=== PATIENT | female | born 1935 | race Caucasian/White ===

== ENCOUNTER 2019-01-27 16:35 | Inpatient (IN) ==
--- NOTE | 2019-01-27 17:16 | PROVIDER DOCUMENTATION ---
HPI-General Adult - General Chief Complaint: Weakness Stated Complaint: WEAKNESS Time Seen by Provider: 01/27/19 17:08 Source: patient Allergies/Adverse Reactions: Patient Allergies Allergy/AdvReac Type Severity Reaction Status Date / Time No Known Allergies Allergy Verified 01/27/19 17:21 Home Medications: Home Medication List Medication Instructions Recorded Confirmed Last Taken Type ATORVAstatin [Lipitor] 40 mg PO QHS 12/07/13 01/27/19 1 Day Ago History ~08/09/17 Carvedilol 25 mg PO BID 12/07/13 01/27/19 1 Day Ago History ~08/09/17 Ezetimibe [Zetia] 10 mg PO QHS 12/07/13 01/27/19 1 Day Ago History ~08/09/17 Indapamide 2.5 mg PO DAILY 12/07/13 01/27/19 1 Day Ago History ~08/09/17 Raloxifene [Evista] 60 mg PO DAILY 12/07/13 01/27/19 1 Day Ago History ~08/09/17 Amlodipine Besylate/Benazepril 1 dose PO DAILY 08/03/17 01/27/19 1 Day Ago History [Amlodipine-Benazepril 10-40 mg] ~08/09/17 Cilostazol 100 mg PO BID 09/06/18 01/27/19 Unknown History Escitalopram [Lexapro] 5 mg PO DAILY 01/27/19 01/27/19 Unknown History Ferrous Gluconate 324 mg PO BID 01/27/19 01/27/19 Unknown History Folic Acid 1 mg PO DAILY 01/27/19 01/27/19 Unknown History Hydralazine HCl 50 mg PO TID 01/27/19 01/27/19 Unknown History Magnesium 250 mg PO DAILY 01/27/19 01/27/19 Unknown History Magnesium Oxide 250 mg PO DAILY 01/27/19 01/27/19 Unknown History Mirtazapine 15 mg PO QHS 01/27/19 01/27/19 Unknown History Pantoprazole [Protonix] 40 mg PO DAILY@0700 01/27/19 01/27/19 Unknown History - History of Present Illness -Gen Adult Nature of Presenting Problems: 83 YOF PRESENTS FROM [facility] VIA EMS FOR C/O GENERALIZED WEAKNESS, COUGH, CONGESTION X 3-4 DAYS. UNSURE IF FEVER BUT REPORTS SHE WAS TOLD SOMEWHERE SHE HAD ONE. SHE DENIES CHILLS, CP, SOB, N/V/D Location of Pain/Injury: reports: none Pain Radiation: reports: no radiation Quality of Pain: reports: none Severity: reports: moderate Onset/Duration: reports: 4 days ago Timing: reports: still present, getting worse Context/Activities at Onset: reports: none Modifying Factors: improves with: nothing Associated Symptoms: reports: weakness Similar Symptoms Previously?: No Recently seen or treated by another doctor?: No Review of Systems - Adult - REVIEW OF SYSTEMS - ADULT Constitutional: reports: no symptoms reported. denies: see HPI, chills, fever, fatique, night sweats, weight gain, weight loss, other Eyes: reports: no symptoms reported. denies: see HPI, discharge, dry eyes, decreased vision, blurred vision, double vision, eye pain, redness, other Ears, Nose, Mouth & Throat: reports: no symptoms reported. denies: see HPI, ear discharge, ear pain, hearing loss, tinnitus, epistaxis, sinus problem, nose pain, loose teeth, mouth/dental pain, mouth swelling, hoarseness, throat pain, throat swelling, other Cardiovascular: reports: no symptoms reported. denies: see HPI, chest pain, edema, heart murmur, irregular heart rate, orthopnea, palpitations, poor circulation, PND, syncope, other Respiratory: reports: see HPI, cough. denies: no symptoms reported, chronic cough, dyspnea on exertion, excessive sputum production, hemoptysis, pleurisy, shortness of breath, wheezing, other Gastrointestinal: reports: no symptoms reported. denies: see HPI, abdominal pain, hematemesis, constipation, diarrhea, difficulty swallowing, frequent heartburn, nausea, poor appetite, rectal bleeding, vomiting, other Genitourinary: reports: no symptoms reported. denies: see HPI, dysuria, disch arge, frequency, flank pain, frequent UTI's, hematuria, hesitency, incontinence, urinary retention, urgency, other Musculoskeletal: reports: muscle weakness (GENERALZIED), other (C/O RLE PAIN). denies: no symptoms reported, see HPI, bone pain, back pain, frequent leg cramps, joint pain, joint swelling, muscle aches, neck pain Integumentary: reports: no symptoms reported. denies: see HPI, hives, hair loss, itching, mole changes, nail changes, rash, skin sores/ulcer, skin thickening, other Neurological: reports: no symptoms reported. denies: see HPI, ataxia, dizziness/vertigo, headache/migraines, loss of balance, numbness, paresthesia, seizure, slurred speech, syncope, tremors, other Psychiatric: reports: no symptoms reported. denies: see HPI, anxiety, anti-depressant use, alcohol/drug dependence, depression, emotional problems, insomnia, panic attacks, suicidal thoughts, other Endocrine: reports: no symptoms reported. denies: see HPI, change in skin pigment, excessive sweating, goiter, cold intolerance, heat intolerance, increased hunger, increased thirst, polyuria, other Hematologic/Lymphatic: reports: no symptoms reported. denies: see HPI, blood clots, easy bruising, low blood count, lymphedema, prolonged bleeding, swollen lymph nodes, transfusions, other Allergic/Immunologic: reports: no symptoms reported. denies: see HPI, allergic reactions, allergic rhinitis, asthma, eczema, food allergy, frequent infections, hay fever, hives, positive PPD, urticaria, other Past History - Adult - PAST MEDICAL HISTORY-ADULT Review of Records: reports: Nursing Assessment Review, Social history reviewed & non-contributory. Major Childhood Illnesses: reports: denies history Cardiovascular: reports: denies history Respiratory: reports: denies history Gastrointestinal: reports: denies history Obstetrical/Gynecological: reports: denies history Genitourinary: reports: denies history Musculoskeletal: reports: intervertebral disc disease, orthopedic injury Neurological: reports: denies history Endocrine/Immune: reports: denies history Other Conditions: reports: denies history - IMMUNIZATION STATUS Childhood Immunizations: See Nurse Assessment Flu Vaccine: See Nurse Assessment - FAMILY HISTORY Family History: reviewed, not pertinent Physical Exam-General - PHYSICAL EXAM-ADULT Initial Vital Signs Reviewed: Yes - CONSTITUTIONAL General Appearance: appears well, alert, no apparent distress - EYES Eyes: PERRL/EOMI, pink conjunctivae - HEAD, EARS, NOSE, MOUTH & THROAT HENMT: normocephalic/atraumatic, moist mucous membranes, normal ENT inspection - NECK Neck: non-tender, full range of motion, supple - RESPIRATORY Respiratory: chest non-tender, lungs clear, normal breath sounds, no pleuratic chest pain, no respiratory distress, no accessory muscle use - CARDIOVASCULAR Cardiovascular: normal peripheral pulses, regular rate, rhythm, no edema, no gallop, no JVD, no murmur - GASTROINTESTINAL (ABDOMEN) Abdominal Exam: normal bowel sounds, non tender, soft - LYMPHATIC Lymphatic: no adenopathy - MUSCULOSKELETAL Back Exam: normal inspection, no CVA tenderness, no vertebral tenderness Extremity: normal range of motion, non-tender, pedal edema, other (GENERALIZED WEAKNESS). negative: normal gait Peripheral Pulses: radial (R): 2+, radial (L): 2+ - SKIN Integumentary: normal color, normal turgor, warm/dry, swelling (BLE +1) - NEUROLOGIC Neurologic: grossly normal - PSYCHIATRIC Psych/Mental Status: normal mood/affect, oriented x 3 Progress - PLAN OF CARE/RESULTS Progress/Plan/Lab Results: Orders Category Date Time Status cxr [CHEST-2 VIEWS] [RAD] Stat Exams 01/27/19 17:13 Ordered CBC WITH ELECTRONIC DIFF [HEME] Stat Lab 01/27/19 17:13 Uncollected COMPREHENSIVE METABOLIC PANEL [CHEM] Stat Lab 01/27/19 17:13 Uncollected INFLUENZA SCREEN A/B Stat Lab 01/27/19 17:13 Uncollected PROTIME WITH INR [COAG] Stat Lab 01/27/19 17:13 Uncollected PTT [COAG] Stat Lab 01/27/19 17:13 Uncollected UA NIMS W/REFLEX CULT [URINALYSIS] Stat Lab 01/27/19 17:13 Uncollected DISCUSSED PLAN WITH SON TO DO VQ IN AM, ADMIT TONIGHT FOR UTI AND POSSIBLE PTE. HE IS IN AGREEMENT WITH PLAN Result Diagrams: 01/27/19 18:10 01/27/19 18:10 - XRAY 1 XRAY Study: Chest Impression: See EMR Report (EXAM: CHEST-2 VIEWS 01/27/2019 HISTORY: COUGH TECHNIQUE: AP and lateral chest COMMENT: Compared to 08/10/2017 the pleural fluid collection which was previously present on the left has resolved. Considering differences in projection the heart size and pulmonary vascularity are within normal limits. There may be COPD. There is no evidence of focal pulmonary opacity. IMPRESSION: No acute abnormality. Electronically signed by Vinicio Cheek 01/27/2019 5:29 PM 01/27/19 [id number] Interpreting Physician: Vinicio Cheek MD Dictated Date/Time: 01/27/19 1728 cc: Miranda Elliott; Jeremie Pickard MD) - CONSULTS/PCP/HOSPITALIST Notification #1 *Consult/PCP/Hospitalist*: DR. KIMBALL Time Discussed: 19:20 Reason/Comments: V/Q SCAN IN THE AM, ELEVATED D-DIMER Consult Disposition: Admit Departure - Departure Date of Disposition Decision: 01/27/19 Time of Disposition Decision: 19:17 DIAGNOSIS: Elevated d-dimer, UTI (urinary tract infection), Generalized weakness, Cough Disposition: ADMITTED INPATIENT 09 Certified Medical Emergency: Emergent Condition: Fair Referrals and Follow-Ups: Jeremie Pickard MD [Primary Care Provider] - - Critical Care Note This patient required my direct & personal management of CC.: No Attestation - Physician/ DEWEY Attestation Patient care was provided by Advanced Practice Provider:: Yes Advanced Practice Provider:: Miranda Elliott Advanced Practice Provider documentation review:: The Mid-level provider documentation, treatment plan and medical decision making was reviewed by the physician who agrees with all treatment and medical decision making by the MLP. The physician spent face to face time with patient:: No Advanced Practice Provider documentation review:: Supervising physician onsite and consulted in the evaluation and care of this patient. The physician did not have a face to face encounter with the patient.
--- NOTE | 2019-01-27 17:31 | Diag Imaging Result Doc PS360 ---
EXAM: CHEST-2 VIEWS 01/27/2019 HISTORY: COUGH TECHNIQUE: AP and lateral chest COMMENT: Compared to 08/10/2017 the pleural fluid collection which was previously present on the left has resolved. Considering differences in projection the heart size and pulmonary vascularity are within normal limits. There may be COPD. There is no evidence of focal pulmonary opacity. IMPRESSION: No acute abnormality. Electronically signed by Vinicio Cheek 01/27/2019 5:29 PM
[2019-01-27 18:14] LABS: URINE SOURCE CATH
[2019-01-27 18:17] LABS: BASO# 0.03 X1000 (0.0-0.2); BASO% 0.6 % (0.0-0.8); EOS# 0.14 X1000 (0.0-0.7); HEMATOCRIT 27.7 % (37.0-47.0); HEMOGLOBIN 9.2 g/dL (12.0-16.0); LYMPH# 0.79 X1000 (1.2-3.4); LYMPH% 16.7 % (20.5-51.1); MCH 30.7 PG (27-31); MCHC 33.2 g/dL (33-37); MCV 92.3 FL (81-99); MONO% 14.8 % (1.7-9.3); MPV 8.8 FL (7.4-10.4); NEUT# 3.06 X1000 (1.4-6.5); NEUT% 64.9 % (42.2-75.2); PLT 298 X1000 (130-400); RDW 12.2 % (11.5-14.5); WBC 4.72 X1000 (4.8-10.8)
[2019-01-27 18:21] LABS: BILIRUBIN URINE NEGATIVE (NEGATIVE); BLOOD URINE NEGATIVE (NEGATIVE); COLOR YELLOW; GLUCOSE URINE NEGATIVE (NEGATIVE); KETONE URINE NEGATIVE (NEGATIVE); LEUKOCYTES URINE LARGE (NEGATIVE); NITRITE URINE NEGATIVE (NEGATIVE); PROTEIN URINE 30 mg/dL (NEGATIVE); SP GRAVITY URINE 1.009; TURBIDITY URINE HAZY (CLEAR); UR EPITHELIAL CELLS <10 /HPF (<10); URINE BACTERIA 4+ /HPF; URINE RBC <10 /HPF (<10); URINE WBC TNTC /HPF (<10); UROBILINOGEN URINE NORMAL (NORMAL)
[2019-01-27 18:28] LABS: INR 1.06; PROTIME 13.9 Seconds (11.0-16.0)
[2019-01-27 18:45] LABS: ALB/GLOB RATIO 1.2; ALBUMIN 3.6 g/dL (3.5-5.0); CALCIUM 9.3 mg/dL (8.8-10.2); CREATININE 1.4 mg/dL (0.5-0.9); POTASSIUM 4.1 mmol/L (3.5-5.1); TOTAL BILIRUBIN 0.4 mg/dL (0.20-1.00); TOTAL PROTEIN 6.5 g/dL (6.3-8.3)
[2019-01-27] MEDS ORDERED: ROCEPHIN 1 GM in NS 50 ML IV ONE (19:07)
[2019-01-27] MEDS ORDERED: LOVENOX 1 MG/KG SUBQ ONE (19:07)
[2019-01-27] MEDS ORDERED: LOVENOX SUBQ ONE (19:20)
[2019-01-27] MEDS ORDERED: NS 1,000 ML IV ONE ×2 (19:26→23:08)
--- NOTE | 2019-01-27 20:43 | EKG Report ---
Test Performed on : 01/27/2019 5:29:25 PM Test Reason : ELEVATED D-DIMER Blood Pressure : / mmHG Vent. Rate : 078 BPM Atrial Rate : 078 BPM P-R Int : 144 ms QRS Dur : 078 ms QT Int : 372 ms P-R-T Axes : 059 -13 042 degrees QTc Int : 424 ms Sinus rhythm. with occasional premature ventricular complexes. Otherwise normal ECG When compared with ECG of 10-AUG-2017 13:24, premature ventricular complexes. are now present Unconfirmed Result
[2019-01-28] MEDS ORDERED: DUONEB (A & A) INH PRN (02:55)
--- NOTE | 2019-01-28 03:41 | HISTORY AND PHYSICAL ---
CHIEF COMPLAINT: Cough which has been ongoing for the last 3 4 days. HISTORY OF PRESENT ILLNESS: Ms. Ayanna Klein is an 83-year-old female, who lives in an assisted living facility in [place]. She does have a history of peripheral artery disease, hypertension, hyperlipidemia, myelodysplastic syndrome, osteoporosis, history of colon cancer status post colectomy. She presents to the hospital because of cough, which she said has been ongoing for last 3 to 4 days. Productive of whitish sputum. She denies any chest pain, shortness of breath or hemoptysis. She admits to having wheezing. She did have a chest x-ray done at the time of her presentation which did not show any focal pulmonary opacity. There was a possible concern for COPD. Also, as part of the workup, the patient also had a urinalysis done in the ER, which showed large amount of leukocytes and numerous WBCs. The patient admits to having some dysuria and also has had a history of urinary tract infection. She denies any hematuria or urinary calculi. She was also noted to have a raised D-dimer level. The patient has now been admitted to the floor now for further management. PAST MEDICAL HISTORY: 1. Myelodysplastic syndrome. 2. History of right renal mass. 3. Hypertension. 4. Hyperlipidemia. 5. Peripheral artery disease. 6. Osteoporosis. 7. History of arthritis. PAST SURGICAL HISTORY: 1. She has had ankle surgery. 2. Partial colectomy. 3. Right endarterectomy. 4. Appendectomy. 5. Hysterectomy. 6. section. SOCIAL HISTORY: She denies any history of cigarette smoking. No alcohol or drug use. She lives in an assisted living facility in [place]. ALLERGIES: No known drug allergies. FAMILY HISTORY: Positive for Parkinson disease. MEDICATIONS INCLUDE: 1. Atorvastatin 40 mg p.o. at bedtime. 2. Coreg 25 g p.o. twice a day. 3. Zetia 10 mg p.o. at bedtime. 4. Indapamide 2.5 mg p.o. daily. 5. Evista 60 mg p.o. daily. 6. Amlodipine/benazepril 10/40, one daily. 7. Cilostazol 100 mg p.o. twice a day 8.Ferrous gluconate 324 mg p.o. twice a day. 9.. Folic acid 1 mg p.o. daily. 10. Hydralazine 50 mg p.o. 3 times a day. 11. Magnesium 250 mg p.o. daily. 12.. Mirtazapine 50 mg p.o. at bedtime. 13. Pantoprazole 40 mg p.o. daily. REVIEW OF SYSTEMS: Constitutional: No fever. Eyes: No blurred vision. ENT: No sinus problems. No hearing loss. Cardiovascular: No chest pain. Respiratory: As in history of present illness. Gastrointestinal: No nausea, vomiting, diarrhea, abdominal pains. Musculoskeletal: Has joint pains. Hematology: Patient does have a history of myelodysplastic syndrome. Dermatology: No skin lesions. Endocrine: No thyroid disease or diabetes. Psychiatric: She has anxiety with depression. Allergy/Immunology: She does have symptoms suggestive of allergic rhinitis. PHYSICAL EXAMINATION: VITAL SIGNS FOLLOWS: Temperature 98.3 degrees, pulse 75, respirations 20, blood pressure is 125/50, oxygen saturation 98%. HEENT: Atraumatic, normocephalic. Conjunctivae anicteric. Extraocular movements intact. No oral lesions noted. NECK: No lymphadenopathy. No thyromegaly. CARDIOVASCULAR: S1, S2. RESPIRATORY SYSTEM: Has evidence of good air entry bilaterally. ABDOMEN: Soft, nontender. No masses felt. EXTREMITIES: No evidence of significant edema. CENTRAL NERVOUS SYSTEM: No obvious focal deficits noted. LABORATORY DATA: WBC is 4.7, hematocrit 27.7 with a platelet count of 298,000. INR is 1.06. Sodium is 129, potassium 4.1, chloride 92, bicarb 23, BUN is 21, creatinine is 1.4. UA shows leukocytes which are large and numerous and WBCs. X-ray of her chest shows no acute focal opacity. There may be COPD. EKG shows sinus rhythm with occasional PVCs. ASSESSMENT AND PLAN: 1. Acute bronchitis with chronic obstructive pulmonary disease. Obtain sputum cultures. Maintain patient on antibiotics as well as antitussive. Use nebulized bronchodilators as needed. 2. Urinary tract infection. Start patient on empiric antibiotics. Follow up on urine as well as blood cultures. 3. Acute kidney injury. Maintain patient on intravenous fluids. Follow up on renal function. Avoid nephrotoxic agents. 4. Hyponatremia. We will check TSH level. Cortisol level. Urine electrolytes. Restrict water intake. Maintain patient on intravenous normal saline. Follow up on sodium level. 5. Elevated D-dimer. We will request a V/Q scan and, if negative, Doppler of the lower extremity. We are unable to do a CTA of the chest at this time in light of impaired renal function. 6. Anemia. The patient does have a history of myelodysplastic syndrome. Will check iron studies, B12, folate level, stool for occult blood. 7. Hypertension. Optimize blood pressure control. 8. Hyperlipidemia. Continue lipid-lowering agent. 9. History of right renal mass. We will obtain a CT scan of the abdomen and pelvis to further evaluate this lesion. 10. Deep vein thrombosis prophylaxis. Sequential compression devices. 11. Gastrointestinal prophylaxis. Proton pump inhibitor. cc: Brice Ortiz MD MTDD
[2019-01-28] MEDS: PROTONIX PO SCH (06:24)
[2019-01-28] MEDS: ROCEPHIN 1 GM in NS 50 ML IV SCH (06:25)
[2019-01-28] MEDS: FERROUS SULFATE PO SCH ×2 (08:25→21:18)
[2019-01-28] MEDS: COREG PO SCH ×2 (08:25→21:18)
[2019-01-28] MEDS: APRESOLINE PO SCH ×3 (08:25→17:34)
[2019-01-28] MEDS: LEXAPRO PO SCH (08:25)
[2019-01-28] MEDS: FOLIC ACID PO SCH (08:25)
[2019-01-28] MEDS: MAG-OX PO SCH (08:26)
[2019-01-28] MEDS: PLETAL PO SCH ×2 (08:27→21:18)
[2019-01-28] MEDS ORDERED: EVISTA PO SCH (09:00)
--- NOTE | 2019-01-28 09:12 | Diag Imaging Result Doc PS360 ---
EXAM: CT ABDOMEN/PELVIS W/O CONTRAST HISTORY: renal mass TECHNIQUE: CT abdomen and pelvis without contrast COMPARISON: 08/10/2017 FINDINGS: Tiny effusions. There is vascular distention. There are several tiny stones within the gallbladder. No adjacent inflammation. No focal hepatic abnormality identified on this noncontrasted exam. No splenomegaly. No inflammation about the pancreas. Normal adrenal glands. There is a 3.2 cm left renal cyst. The postsurgical changes to the right kidney. Small nonobstructing left renal stone. No hydronephrosis. Severe atherosclerosis. No aortic aneurysm. The proximal colon has been resected. Prominent stool within the colon. The bowel loops are not dilated. Urinary bladder is distended and appears normal. The uterus has been removed. Prominent degenerative spine changes. There is a 30-40% compression fracture to the L1 vertebra. Posterior fragment causes moderate spinal stenosis. IMPRESSION: 1.Cholelithiasis 2.Nonobstructing left renal stone 3.Postsurgical changes to the right kidney 4.Proximal colon resection 5.Constipation 6.Severe atherosclerosis 7.Hysterectomy 8.L1 compression fracture with moderate spinal stenosis. This was not present on the prior study. This exam was performed using automated exposure control, adjustment of mA or kV according to patient size, and/or use of iterative reconstruction technique. Electronically signed by Clarence Maria 01/28/2019 9:10 AM
--- NOTE | 2019-01-28 10:09 | Diag Imaging Result Doc PS360 ---
EXAM: LUNG SCAN / VQ HISTORY: elevated d-dimer TECHNIQUE: Nuclear medicine ventilation/perfusion lung scan COMPARISON: Recent chest x-ray FINDINGS: 34.7 mCi DTPA used for the ventilation images. 5.3 mCi MAA given intravenously for the perfusion images. There are large matching ventilation and perfusion defects in the upper lobes. No associated plain film abnormality. No ventilation perfusion mismatches. IMPRESSION: Intermediate probability for pulmonary embolus Electronically signed by Clarence Maria 01/28/2019 10:07 AM
--- NOTE | 2019-01-28 11:10 | PROGRESS NOTE ---
DATE: 01/28/2019 SUBJECTIVE: Ms. Klein is an 83-year-old who presented with cough, which has been ongoing for 3 or 4 days, but she said she just feels bad. There was a little bit of confusion reported. An 83- year-old who lives in assisted facility at the [facility], history of peripheral artery disease, hypertension, hyperlipidemia, myelodysplastic syndrome, osteoporosis, history of colon cancer status post colectomy, who presented to the hospital because of cough, said it was ongoing for the last 3 or 4 days, productive of whitish sputum. Denies any chest pain, shortness of breath, hemoptysis. She admits to having wheezing. Did have a chest x-ray done at the time of presentation, which did not show any focal pulmonary opacity. She has had a V/Q scan, which was intermediate. She has underlying COPD. Not particularly complaining of shortness of breath. Just says she feels bad. Urinalysis showed a large amounts of leukocytosis, numerous white blood cells. She did complain of dysuria, so treated for a urinary tract infection. PAST MEDICAL HISTORY: 1. Myelodysplastic syndrome. 2. Right renal mass, which I believe has been resected. 3. Hypertension. 4. Hyperlipidemia. 5. Peripheral artery disease. 6. Osteoporosis. 7. Arthritis. PAST SURGICAL HISTORY: 1. She has had surgery on her ankle. 2. Partial colectomy. 3. Right endarterectomy. 4. Appendectomy. 5. Hysterectomy. 6. section. OBJECTIVE: General: Today, she is awake, alert, oriented x3, pleasant. Just says she feels bad. Vital Signs: Temp 98.6 degrees, pulse 75, respirations 16, blood pressure 144/51. HEENT: Pupils are equal and round. Conjunctiva pink. Lungs: Clear in all lung kyle. Cardiovascular: Regular rhythm and rate without murmur or S3. Abdomen: Soft. Skin: Warm and dry. ASSESSMENT: 1. Just general malaise, feeling bad. Treating her for acute bronchitis, possibly some early mild chronic obstructive pulmonary disease. Radiographically, no sign of pneumonia. 2. Urinary tract infection. Symptomatic. Continue present antibiotic. 3. Acute kidney injury. Renal function, creatinine 1.4. Looking back, I am not sure what is her baseline, but that could be her baseline. Will give her a little bit of fluids and see how we do with that. She is getting normal saline at 75 mL an hour. 4. Hyponatremia, mild. Thyroid appears to be euthyroid. 5. Elevated D-dimer. V/Q scan was intermediate. I did not want to do a CTA because of the contrast and her renal insufficiency, but I have low suspicion for pulmonary emboli. 6. Anemia, underlying myelodysplastic syndrome. Will check B12, folate. Her blood counts look stable. She has a mild anemia, normocytic. 7. Hypertension. Blood pressure well controlled. 8. Hyperlipidemia. 9. Right renal mass. We got a CT of her abdomen and pelvis, and there are postsurgical changes in the right kidney, nonobstructing left renal stone, cholelithiasis, some constipation, severe atherosclerosis, status post hysterectomy, and she has an L1 compression fracture with moderate spinal stenosis that was not present on previous study in 08/2017. She denies any back pain. PLAN: Continue ceftriaxone 1 gram daily. Treat her for urinary tract infection. I am going to stop the medicines that are not absolutely essential. I am going to stop his Zetia and stop her Remeron and see if this will help. She said that Dr. Pickard has recently stopped some medications as well, just in the hopes that it will help her with her general malaise and feeling bad. She did have some constipation on her CT scan, so we will stop her Evista. Her blood pressures look good, so continue her blood pressure medication. cc: Neno Calvert MD
[2019-01-28 15:10] LABS: UR CREAT RANDOM 33.4 mg/dL (11-20)
[2019-01-28] MEDS ORDERED: ZETIA PO SCH (21:00)
[2019-01-28] MEDS ORDERED: REMERON PO SCH (21:00)
[2019-01-28] MEDS: LIPITOR PO SCH (21:18)
[2019-01-29] MEDS: ROCEPHIN 1 GM in NS 50 ML IV SCH (04:00)
[2019-01-29] MEDS: PROTONIX PO SCH (06:10)
[2019-01-29 07:36] LABS: CALCIUM 9.1 mg/dL (8.8-10.2); CREATININE 1.1 mg/dL (0.5-0.9); MAGNESIUM 1.5 mg/dL (1.5-2.7); POTASSIUM 3.7 mmol/L (3.5-5.1)
[2019-01-29 07:37] LABS: IRON SATURATION 10 %; TIBC 162 ug/dL; TOTAL IRON 17 ug/dL (49-151); UNBOUND IRON 145 ug/dL (112-346)
[2019-01-29 07:47] LABS: TSH 2.84 uIUmL (0.27-4.20)
[2019-01-29] MEDS: MAG-OX PO SCH (08:15)
[2019-01-29] MEDS: APRESOLINE PO SCH ×3 (08:15→21:21)
[2019-01-29] MEDS: FOLIC ACID PO SCH (08:15)
[2019-01-29] MEDS: FERROUS SULFATE PO SCH ×2 (08:15→21:21)
[2019-01-29] MEDS: LEXAPRO PO SCH (08:15)
[2019-01-29] MEDS: PLETAL PO SCH ×2 (08:16→21:21)
[2019-01-29] MEDS: COREG PO SCH ×2 (08:16→21:21)
[2019-01-29] MEDS: LIPITOR PO SCH (21:21)
[2019-01-30] MEDS: ROCEPHIN 1 GM in NS 50 ML IV SCH (03:58)
[2019-01-30] MEDS: PROTONIX PO SCH (06:27)
[2019-01-30 07:30] LABS: HEMATOCRIT 24.7 % (37.0-47.0); HEMOGLOBIN 8.1 g/dL (12.0-16.0); MCH 31.4 PG (27-31); MCHC 32.8 g/dL (33-37); MCV 95.7 FL (81-99); MPV 8.9 FL (7.4-10.4); RBC 2.58 XMIL (4.2-5.4); RDW 11.9 % (11.5-14.5); WBC 3.7 X1000 (4.8-10.8)
[2019-01-30 07:58] LABS: CALCIUM 8.6 mg/dL (8.8-10.2); CREATININE 1.5 mg/dL (0.5-0.9); PHOSPHORUS 3.4 mg/dL (2.7-4.5); POTASSIUM 3.8 mmol/L (3.5-5.1)
[2019-01-30] MEDS: LEXAPRO PO SCH (11:32)
[2019-01-30] MEDS: FOLIC ACID PO SCH (11:32)
[2019-01-30] MEDS: PLETAL PO SCH ×2 (11:32→22:17)
[2019-01-30] MEDS: MAG-OX PO SCH (11:36)
[2019-01-30] MEDS: COREG PO SCH ×2 (11:38→22:17)
[2019-01-30] MEDS: FERROUS SULFATE PO SCH ×2 (11:38→22:17)
[2019-01-30] MEDS: APRESOLINE PO SCH ×3 (11:38→22:17)
--- NOTE | 2019-01-30 14:35 | PROGRESS NOTE ---
DATE: 01/30/2019 SUBJECTIVE: This morning Ms. Klein refers to be doing a lot better. No new complaints. According to Ms Klein the urine discomfort is still there but has significantly improved. OBJECTIVE: Vital signs: Blood pressure is 157/49, pulse of 72, respiration is 16, temperature is 98.1 degrees. General: Ms. Klein 83-year-old female she is in bed no distress. Mucosa is pink and moist. Anicteric. Acyanotic. Neck: Supple. Chest: Clear to auscultation. No crepitations, no rhonchi. Cardiovascular: Regular rate and rhythm. There is no murmurs, no rubs, no gallops. Abdomen: Soft, nontender. Bowel sounds present. Extremities: No pedal edema. [employer]: Patient is awake, alert, and oriented x3. So far laboratory data WBC is 3.70, hemoglobin 8.1, platelet count of 220,000. Chemistry is also reviewed. Creatinine is 1.5. ASSESSMENT: 1. Generalized weakness and fatigue on presentation seems to be improving. 2. Urinary tract infection with urine culture positive for Klebsiella pneumoniae, patient is currently on ceftriaxone, today is day 2 on that. 3. 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 We will continue with fluid restriction. 4. Acute on chronic kidney injury. 5. History of myelodysplastic syndrome. Patient follows up with Dr. Renee. 6. Alzheimer dementia. 7. Anemia of chronic disease associated with leukopenia. 8. Iron deficiency will be replaced once infection is completely clear. 9. Atherosclerosis, severe aortic atherosclerosis on CAT scan noted. So for today we are going to discontinue the Mcneal catheter. Encourage Ms. Klein to participate with physical therapy. Continue with the current antimicrobial therapy. So for today we are going to discontinue the Mcneal catheter. Encourage Ms. Klein to participate with physical therapy. Continue with the current antimicrobial therapy. cc: Juan Lindsey MD MTDD
[2019-01-30] MEDS ORDERED: TYLENOL PO PRN (15:53)
[2019-01-30] MEDS: LIPITOR PO SCH (22:17)
[2019-01-31] MEDS: ROCEPHIN 1 GM in NS 50 ML IV SCH (02:32)
[2019-01-31] MEDS: PROTONIX PO SCH (06:11)
[2019-01-31 07:36] LABS: ALBUMIN 3.1 g/dL (3.5-5.0); CALCIUM 8.6 mg/dL (8.8-10.2); CREATININE 1.4 mg/dL (0.5-0.9); PHOSPHORUS 3.2 mg/dL (2.7-4.5); POTASSIUM 3.6 mmol/L (3.5-5.1)
[2019-01-31] MEDS ORDERED: SAMSCA PO ONE (07:42)
[2019-01-31] MEDS: PLETAL PO SCH ×2 (10:10→21:10)
[2019-01-31] MEDS: MAG-OX PO SCH (10:10)
[2019-01-31] MEDS: APRESOLINE PO SCH ×3 (10:10→21:10)
[2019-01-31] MEDS: COREG PO SCH ×2 (10:10→21:11)
[2019-01-31] MEDS: FOLIC ACID PO SCH (10:11)
[2019-01-31] MEDS: FERROUS SULFATE PO SCH ×2 (10:11→21:11)
[2019-01-31] MEDS: LEXAPRO PO SCH (10:12)
--- NOTE | 2019-01-31 13:06 | PROGRESS NOTE ---
DATE: 01/31/2019 SUBJECTIVE: This morning, Ms. Klein refers to be doing a lot better. She was eating her breakfast at the time of the encounter. She denied any complaints. OBJECTIVE: Vital Signs: Blood pressure 147/43, pulse of 60, respirations 18, temperature is 98 degrees. General: Ms. Klein is an 83-year-old, elderly, female. She was in bed. No distress. HEENT: Mucosa was pink and moist. Anicteric. Acyanotic. Neck: Supple. Chest: Good air entry bilaterally. There were no crepitations, no rhonchi. Cardiovascular: Regular rate and rhythm. No murmurs, no rubs, no gallops. GI: Abdomen was soft, nontender. Bowel sounds present. Extremities: No pedal edema. GAS MANAGER: The patient was awake, alert, and oriented x4. LABORATORY DATA: Sodium is 128, potassium is 3.6, chloride 95, bicarb is 21, creatinine is still 1.4. Urine culture was positive for Klebsiella pneumoniae. Blood cultures have been negative. ASSESSMENT: 1. Klebsiella pneumoniae urinary tract infection. The patient is on ceftriaxone. Today is day 3. 2. Generalized weakness and fatigue on presentation secondary to urinary tract infection and electrolyte abnormalities. 3. Hyponatremia secondary to syndrome of inappropriate antidiuretic hormone. Sodium remains 129. She has been given a dose of Samsca today. 4. Acute on chronic kidney failure. 5. History of myelodysplastic syndrome. The patient follows up with Dr. Singh. 6. Alzheimer's dementia. 7. Anemia of chronic disease. 8. Abdominal aorta atherosclerosis noted on CT scan. In general, I think Ms. Klein is doing well. She has been evaluated by Physical Therapy. 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 I do not see any note from yesterday. Will wait for the evaluation today, and then go from there. Ms. Klein is a resident of [facility] in [place], and we will have to notify them tomorrow for her possible discharge. I think at this time, she will most likely need to go to a rehab. Social Work is aware. cc: Juan Lindsey MD
[2019-01-31] MEDS: LIPITOR PO SCH (21:11)
[2019-02-01] MEDS: PROTONIX PO SCH (06:04)
[2019-02-01 07:51] VITALS: BP 174/53
[2019-02-01 08:13] LABS: HEMATOCRIT 27.2 % (37.0-47.0); HEMOGLOBIN 9.1 g/dL (12.0-16.0); MCH 31.3 PG (27-31); MCHC 33.5 g/dL (33-37); MCV 93.5 FL (81-99); RBC 2.91 XMIL (4.2-5.4); RDW 12.1 % (11.5-14.5); WBC 3.31 X1000 (4.8-10.8)
[2019-02-01 08:26] LABS: ALBUMIN 3.4 g/dL (3.5-5.0); CALCIUM 9.6 mg/dL (8.8-10.2); CREATININE 1.3 mg/dL (0.5-0.9); POTASSIUM 3.8 mmol/L (3.5-5.1)
[2019-02-01] MEDS ORDERED: NORVASC PO SCH (09:00)
[2019-02-01] MEDS: COREG PO SCH (09:14)
[2019-02-01] MEDS: LEXAPRO PO SCH (09:14)
[2019-02-01] MEDS: FOLIC ACID PO SCH (09:14)
[2019-02-01] MEDS: ROCEPHIN 1 GM in NS 50 ML IV SCH (09:15)
[2019-02-01] MEDS: FERROUS SULFATE PO SCH (09:15)
[2019-02-01] MEDS: APRESOLINE PO SCH (09:15)
[2019-02-01] MEDS: MAG-OX PO SCH (09:15)
[2019-02-01] MEDS: PLETAL PO SCH (09:15)
--- NOTE | 2019-02-01 09:30 | Diag Imaging Result Doc PS360 ---
EXAM: CHEST-2 VIEWS INDICATION: hypoxia TECHNIQUE: 2 views COMPARISON: 01/27/2019 FINDINGS: There are a few healed rib fractures on the left. The lungs are grossly clear. There is no discrete pleural fluid collection or pneumothorax. The cardiomediastinal silhouette and central vasculature are grossly unremarkable. IMPRESSION: No evidence of acute pathology by plain radiograph. Electronically signed by Sal Casper 02/01/2019 9:28 AM
--- NOTE | 2019-02-02 21:42 | DISCHARGE SUMMARY ---
ADMISSION DATE: 01/27/2019 DISCHARGE DATE: 02/01/2019 DISPOSITION: Back to [facility]. CONSULTATIONS DURING THIS ADMISSION: None. INVASIVE PROCEDURES DONE DURING THIS ADMISSION: None. IMAGING STUDIES OF SIGNIFICANCE: 1. A chest x-ray showed no acute abnormality. A V/Q scan shows intermediate probability for pulmonary embolism. 2. A CT scan of the abdomen and pelvis showed cholelithiasis and nonobstructing left renal stone, proximal colon resection, constipation, severe atherosclerosis, and a compression fracture to L1 spinous processes. 3. A repeat chest x-ray showed no evidence of acute pathology. ADMISSION DIAGNOSES: 1. Acute bronchitis and chronic obstructive pulmonary disease. 2. Urinary tract infection. 3. Acute kidney injury. 4. Hyponatremia. 5. Anemia. DIAGNOSES AT THE TIME OF DISCHARGE: 1. Klebsiella pneumoniae urinary tract infection. 2. Generalized weakness and fatigue on presentation secondary to urinary tract infection and electrolyte abnormalities. 3. Hyponatremia secondary to syndrome of inappropriate antidiuretic hormone secretion. 4. Acute on chronic renal disease. 5. History of myelodysplastic syndrome. Patient follows up with Dr. Singh. 6. Alzheimer dementia. 7. Anemia of chronic disease. 8. Abdominal aorta atherosclerosis noted on CT scan. DISCHARGE MEDICATIONS: 1. Raloxifene 60 mg p.o. daily. 2. Zetia 10 mg p.o. at bedtime. 3. Atorvastatin 40 mg p.o. at bedtime. 4. Carvedilol 25 mg b.i.d. 5. Amlodipine/benazepril. 6. Cilostazol 100 mg b.i.d. 7. Folic acid 1 mg p.o. daily. 8. Iron sulfate 324 b.i.d. 9. Hydralazine 50 mg 3 times per day. 10. Magnesium oxide. 11. Mirtazapine 15 mg p.o. at bedtime. 12. Pantoprazole 40 mg p.o. daily. 13. Lexapro 5 mg daily. 14. Keflex 500 b.i.d. MEDICATION THAT HAS BEEN DISCONTINUED: Indapamide. PRESENTING COMPLAINT: Cough going on for 3 or 4 days, generalized weakness. HISTORY OF PRESENTING COMPLAINT: Ms. Klein, an 83-year-old female who is a resident of assisted living, came to the emergency department because of cough, which has been going on for some time. Sputum production is white. Chest x-ray on presentation did not show any pneumonia. Her workup did show numerous WBC dysuric symptoms, suspicion for urinary tract infection. Ms. Klein also did complain of generalized weakness. She was admitted for suspicion of urinary tract infection. She was started on IV antibiotics. HOSPITAL COURSE: Ms. Klein continued to show some improvement during the hospital cause on the IV antibiotics. Her sodium was 129. 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 She was given a dose of Samsca. That improved her sodium from 129 on admission to 141 on the day of discharge. Ms. Klein was also evaluated on multiple occasions by physical therapy. After this morning, she was able to do 7 feet full weightbearing. She has been evaluated by the nursing staff from [facility], and she has been accepted to go back. We think Ms. Klein is now medically stable to be sent back to the assisted living. We think her generalized weakness was all related to hyponatremia and urinary tract infection, both of which have improved, and she is feeling better. CURRENT VITALS AT THE TIME OF DISCHARGE: Her blood pressure is 174/53, pulse of 88, respirations of 15, temperature is 98.6 degrees. She was saturating about 91%. However, her recent chest x- ray did not show any abnormality. All the discharge instructions have been discussed with her. She voiced understanding. Time spent for discharge is 38 minutes. cc: Juan Lindsey MD [facility]
== END 2019-02-01 13:21 | DRG 644 ==
LOC: SUPCPDRO → ED 16:35 → SUATTDRO 23:22 → 3N 23:22
PROVIDERS: ATTEND Internal Medicine